=== PATIENT | male | born 1945 | race Caucasian/White ===

== ENCOUNTER → 2018-04-10 | Outpatient (CLI) | payer MEDICARE ==
[~2018-04-10] MED LIST: ASPI325T17 PO; CELE200C PO; DIAZ10TA PO; DILT120C80 PO; DUTA0.5C PO; FLEC50TA25 PO; MELA1TAB7 PO; MULT-658 PO; OMEP40CA6 PO; OXYC-307 PO; PRAM0.7519 PO; PRAM0.754 PO; RIVA20TA PO
[2018-04-10 13:48] LABS: MICROSCOPIC NOT IND
[2018-04-10 13:54] LABS: ANION GAP 7 mmol/L (5-15); CALCIUM 8.6 mg/dL (8.5-10.1); CHLORIDE 109 mmol/L (98-107); CREATININE 1.06 mg/dL (0.7-1.3); INTERNATIONAL NORMALIZED RATIO 1.08 (0.93-1.1); PROTHROMBIN TIME 11.4 Seconds (9.6-11.5)
[2018-04-10 13:57] LABS: CULTURE INDICATED? NO
[2018-04-10 14:05] LABS: BASOPHILS # (AUTO) 0.03 x10^3/uL (0-0.1); BASOPHILS % (AUTO) 1 % (0-1); EOSINOPHILS % (AUTO) 3 % (1-7); LYMPHOCYTES # (AUTO) 0.84 x10^3/uL (1-3.4); LYMPHOCYTES % (AUTO) 14 % (22-44); MD NO; MEAN CORPUSCULAR HEMOGLOBIN 24.4 pg (27.5-34.5); MEAN CORPUSCULAR HGB CONC 30.7 g/dL (33.2-36.2); MEAN CORPUSCULAR VOLUME 79.3 fL (81-97); MEAN PLATELET VOLUME 7.2 fL (7.4-10.4); MONOCYTES # (AUTO) 0.46 x10^3/uL (0.2-0.8); MONOCYTES % (AUTO) 8 % (2-9); NEUTROPHILS # (AUTO) 4.46 x10^3/uL (1.8-6.8); NEUTROPHILS % (AUTO) 74 % (42-75); PLATELET COUNT 299 x10^3/uL (130-400); RED BLOOD COUNT 4.15 x10^6/uL (4.38-5.82)
== END | disposition home or self-care (01) ==
LOC: STAR 12:31
PROVIDERS: ATTEND Neurological Surgery
DX: Z01.818 Encounter for other preprocedural examination (principal); K44.9 Diaphragmatic hernia without obstruction or gangrene; M47.816 Spondylosis without myelopathy or radiculopathy, lumbar region
CPT/HCPCS: 36415; 71046; 80048; 81003; 85025; 85610; 85730

== ENCOUNTER → 2019-06-11 | Outpatient (CLI) | payer MEDICARE ==
[~2019-06-11] MED LIST changes: +FURO20TA3 PO; +OMEP40CA42 PO; -OMEP40CA6 PO; +POTA10TA31 PO; +TIZA4TAB2 PO; +TRAM50TA2 PO
== END | disposition home or self-care (01) ==
LOC: LAB 14:20
PROVIDERS: ATTEND Orthopaedic Surgery
DX: Z01.818 Encounter for other preprocedural examination (principal); M17.11 Unilateral primary osteoarthritis, right knee
CPT/HCPCS: 87081

== ENCOUNTER 2019-06-27 14:51 | Emergency (ER) | payer MEDICARE ==
[~2019-06-27] VITALS: Ht 182.9 cm; Wt 108.0 kg
[2019-06-27 18:03] LABS: BASOPHILS # (AUTO) 0.02 x10^3/uL (0-0.1); BASOPHILS % (AUTO) 0 % (0-1); EOSINOPHILS # (AUTO) 0.17 x10^3/uL (0-0.4); EOSINOPHILS % (AUTO) 3 % (1-7); LYMPHOCYTES # (AUTO) 0.59 x10^3/uL (1-3.4); LYMPHOCYTES % (AUTO) 9 % (22-44); MD NO; MEAN CORPUSCULAR HEMOGLOBIN 32.8 pg (27.5-34.5); MEAN CORPUSCULAR HGB CONC 34.2 g/dL (33.2-36.2); MEAN CORPUSCULAR VOLUME 95.9 fL (81-97); MEAN PLATELET VOLUME 6.2 fL (7.4-10.4); MONOCYTES # (AUTO) 0.48 x10^3/uL (0.2-0.8); MONOCYTES % (AUTO) 7 % (2-9); NEUTROPHILS # (AUTO) 5.46 x10^3/uL (1.8-6.8); NEUTROPHILS % (AUTO) 81 % (42-75); PLATELET COUNT 377 x10^3/uL (130-400); RED BLOOD COUNT 3.58 x10^6/uL (4.38-5.82); RED CELL DISTRIBUTION WIDTH 13.4 % (9.4-14.8)
[2019-06-27 18:22] LABS: INTERNATIONAL NORMALIZED RATIO 0.89 (0.93-1.1); PROTHROMBIN TIME 9.4 Seconds (9.6-11.5)
[2019-06-27 18:52] LABS: ANION GAP 7 mmol/L (5-15); CALCIUM 8.9 mg/dL (8.5-10.1); CHLORIDE 101 mmol/L (98-107)
--- NOTE | 2019-06-27 19:28 | NUR ---
ASSESSMENT MADE. SEEN BY PA AND ERP.
[2019-06-27] MEDS ORDERED: APIXABAN 5 MG TABLET ONE (19:39)
[2019-06-27] MEDS ORDERED: APIXABAN 5 MG TABLET PO ONE (20:00)
--- NOTE | 2019-06-27 20:00 | NUR ---
PATIENT MEDICATED. DISCHARGED WITH PRESCRIPTION AND INSTRUCTION. VERBALIZED UNDERSTANDING.
[2019-06-27 20:02] VITALS: BP 118/78
== END 2019-06-27 20:14 | disposition home or self-care (01) ==
LOC: ED 20:08
DX: I82.411 Acute embolism and thrombosis of right femoral vein (principal); Z87.891 Personal history of nicotine dependence; Z96.659 Presence of unspecified artificial knee joint
CPT/HCPCS: 36415; 80048; 85025; 85610; 85730; 99284

== ENCOUNTER 2019-08-13 15:34 | Inpatient (IN) | payer MEDICARE ==
[~2019-08-13] VITALS: Ht 185.4 cm; Wt 100.8 kg
[~2019-08-13 15:34] MED LIST changes: +APIX5TAB PO; +HYDR-3237 PO
[2019-08-13] MEDS ORDERED: PANTOPRAZOLE 80 MG in SODIUM CHLORIDE 0.9% 50 ML IVPB ONE ×2 (15:54→17:05)
[2019-08-13] MEDS ORDERED: SODIUM CHLORIDE FLUSH 10ML SYR IVF ONE (16:00)
[2019-08-13] MEDS ORDERED: OMEP1CAP25 PO (16:01)
[2019-08-13] MEDS ORDERED: OMEP40CA42 PO (16:01)
--- NOTE | 2019-08-13 16:07 | NUR ---
Pt changed into gown, EKG completed, resting in gurney, at bs. pt given warm blanket for comfort. On monitor, denies additional needs, call light within reach. Lab at bedside for blood draw, JEANIE.
[2019-08-13 16:27] LABS: ALANINE AMINOTRANSFERASE 20 U/L (12-78); ALBUMIN 3.4 g/dL (3.4-5.0); ANION GAP 5 mmol/L (5-15); CALCIUM 9.1 mg/dL (8.5-10.1); CHLORIDE 109 mmol/L (98-107)
[2019-08-13 16:30] LABS: ALKALINE PHOSPHATASE 84 U/L (45-117); BILIRUBIN,TOTAL 0.4 mg/dL (0.2-1.0); TOTAL PROTEIN 6.4 g/dL (6.4-8.2)
[2019-08-13 16:31] LABS: MEAN CORPUSCULAR HEMOGLOBIN 29.3 pg (27.5-34.5); MEAN CORPUSCULAR HGB CONC 32.2 g/dL (33.2-36.2); MEAN PLATELET VOLUME 6.6 fL (7.4-10.4); PLATELET COUNT 255 x10^3/uL (130-400); RED BLOOD COUNT 2.27 x10^6/uL (4.38-5.82); RED CELL DISTRIBUTION WIDTH 16.8 % (9.4-14.8)
[2019-08-13 17:11] LABS: MD YES
--- NOTE | 2019-08-13 17:14 | NUR ---
Dr Delcid at , discussing plan of care with pt. NAD, denies additional needs, given pillows for comfort, at bedside, being medicated per MAR. See MAR for interventions, WCTM.
[2019-08-13 17:26] LABS: BANDS%(MANUAL) 2 % (0-7); EOS#(MANUAL) 0.14 x10^3/uL (0.0-0.4); EOS% (MANUAL) 3 % (1-7); LYMPH#(MANUAL) 0.82 x10^3/uL (1-3.4); LYMPHS% (MANUAL) 17 % (22-44); MONOS#(MANUAL) 0.34 x10^3/uL (0.3-2.7); MONOS% (MANUAL) 7 % (2-9); SEG#(MANUAL) 3.41 x10^3/uL (1.8-6.8); SEGS% (MANUAL) 71 % (42-75)
[2019-08-13 17:27] LABS: ANISOCYTOSIS 2+; MICROCYTOSIS 1+
[2019-08-13 17:28] LABS: HYPOCHROMIA 2+; POLYCHROMASIA 2+
[2019-08-13 17:30] LABS: OVALOCYTES 1+
[2019-08-13 17:32] LABS: <PLATELET ESTIMATE> ADEQUATE; <PLT MORPHOLOGY> NORMAL PLT MORPH
[2019-08-13] MEDS ORDERED: SODIUM CHLORIDE FLUSH 10ML SYR IVF PRN (18:00)
[2019-08-13 18:13] VITALS: BP 136/77
--- NOTE | 2019-08-13 18:31 | NUR ---
Report given to Alexus FRIAS, pt currently resting in trudy, at bedside, denies any discomfort or additional needs at this time. NAD, even and unlabored respirations, WCTM.
--- NOTE | 2019-08-13 18:43 | NUR ---
NO TPA INDICATED BECAUSE ONSET DETERMINED TO BE GREATER THAN 3 HOURS.
[2019-08-13] MEDS ORDERED: ONDANSETRON 2MG/ML, 2ML IVPush PRN (19:00)
[2019-08-13] MEDS ORDERED: VANCOMYCIN PER PHARMACY MC PRN (19:00)
[2019-08-13] MEDS ORDERED: morphine SULFATE 10 MG/ML, 1ML IVPush PRN (19:00)
[2019-08-13] MEDS ORDERED: PANTOPRAZOLE 80 MG in SODIUM CHLORIDE 0.9% 100 ML IV SCH (19:00)
--- NOTE | 2019-08-13 19:10 | NUR ---
Bedside report to Breanna FRIAS. Pt care transferred at this time.
--- NOTE | 2019-08-13 19:11 | NUR ---
[id number] note on incorrect pt.
--- NOTE | 2019-08-13 19:17 | NUR ---
called to give report, notified that rn will call back for report
[2019-08-13 19:41] VITALS: BP 104/63
[2019-08-13] MEDS ORDERED: PHARMACOKINETIC MONITORING MC PRN (20:00)
[2019-08-13] MEDS ORDERED: VANCOMYCIN 2,500 MG in SODIUM CHLORIDE 0.9% 500 ML IV ONE (20:00)
[2019-08-13] MEDS ORDERED: PHARMACOKINETIC CONSULTATION MC ONE (20:00)
[2019-08-13 21:10] VITALS: BP 137/82
[2019-08-13] MEDS: PANTOPRAZOLE 80 MG in SODIUM CHLORIDE 0.9% 100 ML IV SCH (21:30)
[2019-08-13] MEDS: SODIUM CHLORIDE 0.9% 1,000 ML IV SCH (21:30)
[2019-08-14 00:29] VITALS: BP 127/80
[2019-08-14] MEDS: PANTOPRAZOLE 80 MG in SODIUM CHLORIDE 0.9% 100 ML IV SCH (04:54)
[2019-08-14 06:20] LABS: ANION GAP 6 mmol/L (5-15); CALCIUM 8.6 mg/dL (8.5-10.1); CHLORIDE 112 mmol/L (98-107); MEAN CORPUSCULAR HEMOGLOBIN 29.3 pg (27.5-34.5); MEAN CORPUSCULAR HGB CONC 32.2 g/dL (33.2-36.2); MEAN CORPUSCULAR VOLUME 90.9 fL (81-97); MEAN PLATELET VOLUME 6.7 fL (7.4-10.4); PLATELET COUNT 236 x10^3/uL (130-400); RED CELL DISTRIBUTION WIDTH 16.8 % (9.4-14.8)
[2019-08-14 06:22] LABS: CREATININE 0.97 mg/dL (0.7-1.3)
[2019-08-14 06:43] LABS: BASOPHILS # (AUTO) 0.02 x10^3/uL (0-0.1); BASOPHILS % (AUTO) 0 % (0-1); EOSINOPHILS # (AUTO) 0.22 x10^3/uL (0-0.4); EOSINOPHILS % (AUTO) 6 % (1-7); LYMPHOCYTES # (AUTO) 0.49 x10^3/uL (1-3.4); LYMPHOCYTES % (AUTO) 12 % (22-44); MD SCAN; MONOCYTES # (AUTO) 0.27 x10^3/uL (0.2-0.8); MONOCYTES % (AUTO) 7 % (2-9); NEUTROPHILS % (AUTO) 75 % (42-75)
[2019-08-14 06:51] VITALS: BP 149/81
[2019-08-14] MEDS: HYDROcodone/APAP 5/325 TABLET PO PRN ×2 (09:56→23:50)
[2019-08-14] MEDS: SODIUM CHLORIDE 0.9% 1,000 ML IV SCH (09:58)
[2019-08-14] MEDS ORDERED: PRAM1.5T23 PO (11:23)
[2019-08-14] MEDS ORDERED: CHLORHEXIDINE 15 ML UDC MM ONE (12:00)
[2019-08-14] MEDS ORDERED: ERGO500017 PO (12:12)
[2019-08-14] MEDS ORDERED: RIVA20TA PO (12:14)
[2019-08-14] MEDS ORDERED: DEXAMETHASONE 4 MG/ML, 1ML ONE (12:15)
[2019-08-14] MEDS ORDERED: SUCCINYLCHOLINE 20 MG/ML, 10ML ONE (12:15)
[2019-08-14] MEDS ORDERED: PROPOFOL 10 MG/ML, 20ML ONE (12:15)
[2019-08-14] MEDS ORDERED: ONDANSETRON 2MG/ML, 2ML ONE (12:15)
[2019-08-14] MEDS ORDERED: CELE200C PO (12:16)
[2019-08-14] MEDS ORDERED: AMOX500T PO (12:19)
[2019-08-14 14:08] VITALS: BP 135/81
[2019-08-14 14:37] LABS: MEAN CORPUSCULAR HEMOGLOBIN 29.3 pg (27.5-34.5); MEAN CORPUSCULAR HGB CONC 32.3 g/dL (33.2-36.2); MEAN CORPUSCULAR VOLUME 90.6 fL (81-97); MEAN PLATELET VOLUME 6.7 fL (7.4-10.4); PLATELET COUNT 267 x10^3/uL (130-400); RED BLOOD COUNT 2.89 x10^6/uL (4.38-5.82)
[2019-08-14 15:09] LABS: BASOPHILS % (AUTO) 0 % (0-1); EOSINOPHILS # (AUTO) 0.13 x10^3/uL (0-0.4); EOSINOPHILS % (AUTO) 3 % (1-7); LYMPHOCYTES # (AUTO) 0.26 x10^3/uL (1-3.4); LYMPHOCYTES % (AUTO) 5 % (22-44); MD SCAN; MONOCYTES # (AUTO) 0.09 x10^3/uL (0.2-0.8); MONOCYTES % (AUTO) 2 % (2-9); NEUTROPHILS # (AUTO) 4.59 x10^3/uL (1.8-6.8); NEUTROPHILS % (AUTO) 91 % (42-75)
[2019-08-14] MEDS: SUCRALFATE 1 GM/10 ML UDC PO SCH (16:22)
[2019-08-14] MEDS: PRAMIPEXOLE 0.5MG TABLET PO SCH ×2 (16:23→20:50)
[2019-08-14 18:57] LABS: MEAN CORPUSCULAR HEMOGLOBIN 29.1 pg (27.5-34.5); MEAN CORPUSCULAR HGB CONC 32.4 g/dL (33.2-36.2); MEAN PLATELET VOLUME 6.8 fL (7.4-10.4); PLATELET COUNT 266 x10^3/uL (130-400); RED BLOOD COUNT 2.84 x10^6/uL (4.38-5.82)
[2019-08-14 19:09] LABS: MD YES
[2019-08-14 19:18] VITALS: BP 138/83
[2019-08-14 19:23] LABS: <PLATELET ESTIMATE> ADEQUATE; ANISOCYTOSIS 2+; BAND#(MANUAL) 0.05 x10^3/uL; BANDS%(MANUAL) 1 % (0-7); HYPOCHROMIA 1+; LYMPH#(MANUAL) 0.05 x10^3/uL (1-3.4); LYMPHS% (MANUAL) 1 % (22-44); MICROCYTOSIS 1+; OVALOCYTES 1+; POLYCHROMASIA 1+; SEG#(MANUAL) 4.61 x10^3/uL (1.8-6.8); SEGS% (MANUAL) 98 % (42-75)
[2019-08-14 19:24] LABS: SMALL PLATELETS 1+
[2019-08-14] MEDS ORDERED: VANCOMYCIN 2,000 MG in SODIUM CHLORIDE 0.9% 500 ML IV SCH (21:00)
[2019-08-15 00:40] LABS: BASOPHILS % (AUTO) 0 % (0-1); EOSINOPHILS % (AUTO) 0 % (1-7); LYMPHOCYTES % (AUTO) 7 % (22-44); MD NO; MEAN CORPUSCULAR HEMOGLOBIN 28.7 pg (27.5-34.5); MEAN CORPUSCULAR HGB CONC 32.2 g/dL (33.2-36.2); MEAN CORPUSCULAR VOLUME 89.3 fL (81-97); MEAN PLATELET VOLUME 6.8 fL (7.4-10.4); MONOCYTES # (AUTO) 0.17 x10^3/uL (0.2-0.8); MONOCYTES % (AUTO) 4 % (2-9); NEUTROPHILS # (AUTO) 3.97 x10^3/uL (1.8-6.8); NEUTROPHILS % (AUTO) 90 % (42-75); PLATELET COUNT 266 x10^3/uL (130-400); RED BLOOD COUNT 2.74 x10^6/uL (4.38-5.82); RED CELL DISTRIBUTION WIDTH 17.1 % (9.4-14.8)
[2019-08-15 00:44] VITALS: BP 113/66
[2019-08-15] MEDS ORDERED: OMEPRAZOLE 20 MG CAPSULE.DR PO SCH (06:30)
[2019-08-15 06:50] LABS: BASOPHILS # (AUTO) 0.02 x10^3/uL (0-0.1); BASOPHILS % (AUTO) 0 % (0-1); EOSINOPHILS # (AUTO) 0.03 x10^3/uL (0-0.4); EOSINOPHILS % (AUTO) 1 % (1-7); LYMPHOCYTES # (AUTO) 0.57 x10^3/uL (1-3.4); LYMPHOCYTES % (AUTO) 10 % (22-44); MD NO; MEAN CORPUSCULAR HEMOGLOBIN 28.7 pg (27.5-34.5); MEAN CORPUSCULAR HGB CONC 31.7 g/dL (33.2-36.2); MEAN CORPUSCULAR VOLUME 90.7 fL (81-97); MEAN PLATELET VOLUME 6.4 fL (7.4-10.4); MONOCYTES # (AUTO) 0.42 x10^3/uL (0.2-0.8); MONOCYTES % (AUTO) 8 % (2-9); NEUTROPHILS # (AUTO) 4.51 x10^3/uL (1.8-6.8); NEUTROPHILS % (AUTO) 81 % (42-75); PLATELET COUNT 285 x10^3/uL (130-400); RED BLOOD COUNT 2.82 x10^6/uL (4.38-5.82)
[2019-08-15 07:17] VITALS: BP 118/77
[2019-08-15] MEDS: PRAMIPEXOLE 0.5MG TABLET PO SCH (07:48)
[2019-08-15] MEDS: SUCRALFATE 1 GM/10 ML UDC PO SCH ×2 (07:48→10:22)
[2019-08-15] MEDS ORDERED: OMEP-110 PO (08:24)
[2019-08-15] MEDS ORDERED: SUCR1ORA5 PO (08:24)
[2019-08-15] MEDS ORDERED: ERGOCALCIFEROL 50,000 UNIT CAPSULE PO SCH (09:00)
[2019-08-15] MEDS ORDERED: DUTASTERIDE 0.5 MG CAPSULE PO SCH (09:00)
== END 2019-08-15 11:10 | disposition home or self-care (01) | DRG 378 ==
LOC: ED 16:38 → EDIP 17:34 → 3N 19:39
PROVIDERS: ADMIT Internal Medicine; ATTEND Internal Medicine
PROC: 30233N1 Transfusion of Nonautologous Red Blood Cells into Peripheral Vein, Percutaneous Approach (ICD-10-PCS; principal; 2019-08-13)
PROC: 0DB68ZX Excision of Stomach, Via Natural or Artificial Opening Endoscopic, Diagnostic (ICD-10-PCS; 2019-08-14)
DX: K29.61 Other gastritis with bleeding (principal); T84.53XA Infection and inflammatory reaction due to internal right knee prosthesis, initial encounter; I82.411 Acute embolism and thrombosis of right femoral vein; D62 Acute posthemorrhagic anemia; D68.9 Coagulation defect, unspecified; I48.91 Unspecified atrial fibrillation; Y83.1 Surgical operation with implant of artificial internal device as the cause of abnormal reaction of the patient, or of later complication, without mention of misadventure at the time of the procedure; Z83.3 Family history of diabetes mellitus; Z86.718 Personal history of other venous thrombosis and embolism; Z87.19 Personal history of other diseases of the digestive system; Z87.891 Personal history of nicotine dependence
CPT/HCPCS: 36415; 36430; 80048; 80053; 85025; 85730; 86850; 86900; 86923; 88305; 93005; 99285; G0378; J1100; J2405; J2704; J3370; C9113; J0330; J2270; J7030; J7040; P9016